=== PATIENT | female | born 2000 | race American Indian/Alaskan Native ===

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

== ENCOUNTER 2020-02-11 16:41 | Emergency (ER) | payer SELFPAY ==
[2020-02-11 16:57] VITALS: BP 126/82
== END 2020-02-11 20:33 | disposition left against medical advice (07) ==
LOC: ED 16:41
DX: S61.217A Laceration without foreign body of left little finger without damage to nail, initial encounter (principal); Z53.21 Procedure and treatment not carried out due to patient leaving prior to being seen by health care provider; W26.9XXA Contact with unspecified sharp object(s), initial encounter; Y93.89 Activity, other specified; Y92.89 Other specified places as the place of occurrence of the external cause; Y99.8 Other external cause status

== ENCOUNTER 2021-03-10 08:45 | Emergency (ER) | payer MEDICAID ==
[2021-03-10] MEDS ORDERED: PROMETHAZINE/CODEINE 6.25-10 MG ORAL LIQD 5 ML PO ONE (09:23)
--- NOTE | 2021-03-10 09:52 | Emergency Department Report ---
Minor Respiratory - HPI Chief Complaint: Upper Respiratory Infection Stated Complaint: VOMITTING,LOSS OF VOICE,COUGHING Time Seen by Provider: 03/10/21 09:23 Duration: 4 Days Severity: moderate Minor Respiratory: Yes Rhinorrhea, Yes Sore Throat, Yes Able to Tolerate Fluids, Yes Cough, No Ear Pain, No Sick Contacts, No Hemoptysis, No Chest Pain, No Shortness of Breath, No Fever Other History: The patient was evaluated in the emergency department for symptoms described in the history of present illness. He/she was evaluated in the context of the global COVID-19 pandemic, which necessitated consideration that the patient might be at risk for infection with the virus that causes COVID-19. Institutional protocols and algorithms that pertain to the evaluation of patients at risk for COVID-19 are in a state of rapid change based on information released by regulatory bodies including the CDC and federal and state organizations. These policies and algorithms were followed during the patient's care in the emergency department. Please note that these policies, procedures and recommendations changed on a rapid basis. 20-year-old - Stateless female presents to the emergency room complaining of a cough and sore throat. Last 4 to 5 days. She states that when she coughs it causes her throat to hurt. She denies any fever denies being vaccinated vomited x1 from posttussis emesis. Denies any nausea no diarrhea. She does admit to postnasal drainage. Denies any past medical history currently takes no meds on a daily basis and has no known drug allergies. ED Review of Systems ROS: Stated complaint: VOMITTING,LOSS OF VOICE,COUGHING Other details as noted in HPI Comment: All other systems reviewed and negative ED Past Medical Hx - Past Medical History Previous Medical History?: No Hx Hypertension: No Hx Congestive Heart Failure: No Hx Diabetes: No Hx Deep Vein Thrombosis: No Hx Renal Disease: No Hx Sickle Cell Disease: No Hx Seizures: No Hx Asthma: No Hx COPD: No Hx HIV: No - Surgical History Past Surgical History?: No - Social History Smoking Status: Never Smoker Substance Use Type: None - Medications Home Medications: Home Medications Medication Instructions Recorded Confirmed Last Taken Type Ampicillin 500 mg PO Q6H #28 capsule 05/10/16 07/12/16 Unknown Rx HYDROcodone/APAP 5-325 [[place] 1 each PO Q4HR PRN #20 tablet 05/10/16 07/12/16 Unknown Rx 5/325] metroNIDAZOLE [Flagyl] 500 mg PO Q12HR #14 tab 05/10/16 07/12/16 Unknown Rx Vit-Fe Fumar-FA [ 1 tab PO DAILY 07/12/16 07/12/16 Unknown History Vitamin] Ibuprofen [Motrin 400 MG tab] 400 mg PO Q8H PRN #21 tablet 12/25/18 Unknown Rx Amoxicillin [Trimox CAP] 500 mg PO Q8H 10 Days #30 capsule 12/27/18 Unknown Rx Benzocaine/Mentho [Cepacol X 1 each MM Q2H PRN #3 packet 12/27/18 Unknown Rx Strength] Ibuprofen [Motrin 800 MG tab] 800 mg PO Q8HR PRN #30 tablet 12/27/18 Unknown Rx dexAMETHasone [Decadron] 4 mg PO Q12H 2 Days #4 tablet 12/27/18 Unknown Rx Promethazine Dm (Nf) [Phenergan DM 5 ml PO Q6H PRN #118 ml 03/10/21 Unknown Rx 6.25-15 mg/5 ml] Minor Respiratory Exam - Exam General: Vital signs noted. No distress. Alert and acting appropriately. HEENT: Yes Pharyngeal Erythema, No Pharyngeal Exudates, No Moist Mucous Membranes, No Rhinorrhea, No Conjuctival Injection, No Frontal Tenderness, No Maxillary Tenderness Ear: Neither EAC Pain, Neither EAC Discharge Neck: Yes Supple, No Adenopathy Lungs: Yes Good Air Exchange, Yes Cough, No Wheezes, No Ronchi, No Stridor, No Labored Respirations, No Retractions, No Use of Accessory Muscles, No Other Abnormal Lung Sounds Heart: Yes Regular, No Murmur Abdomen: Yes Normal Bowel Sounds, No Tenderness, No Peritoneal Signs Skin: No Rash, No Edema Neurologic: Alert and oriented, no deficits. Musculoskeletal: Unremarkable. ED Medical Decision Making - Medical Decision Making 20-year-old -Stateless female presents to the emergency room complaining of a cough and sore throat. Last 4 to 5 days. She states that when she coughs it causes her throat to hurt. She denies any fever denies being vaccinated vomited x1 from posttussis emesis. Denies any nausea no diarrhea. She does admit to postnasal drainage. Denies any past medical history currently takes no meds on a daily basis and has no known drug allergies. Strep test negative. Patient is given promethazine with codeine for her cough. She will be discharged with promethazine DM. Critical care attestation.: If time is entered above; I have spent that time in minutes in the direct care of this critically ill patient, excluding procedure time. ED Disposition Clinical Impression: Cough Disposition: 01 HOME / SELF CARE / HOMELESS Is pt being admited?: No Does the pt Need Aspirin: No Condition: Stable Instructions: Cool Mist Vaporizer, Cough, Adult, [id number] Additional Instructions: Strep test negative. Take cough medication as prescribed. You can also take Zyrtec's or Claritin to help with the postnasal drip. Follow-up with your primary care provider. Tylenol or ibuprofen for throat pain. Prescriptions: Promethazine Dm (Nf) [Phenergan DM 6.25-15 mg/5 ml] 5 ml PO Q6H PRN #118 ml PRN Reason: Cough Referrals: PRIMARY CARE, [Primary Care Provider] - 3-5 Days Your, primary care provider [Other] - 3-5 Days Forms: Work/School Release Form(ED) Time of Disposition: 09:52
[2021-03-10 10:06] VITALS: BP 113/65
== END 2021-03-10 10:06 | disposition home or self-care (01) ==
LOC: ED 08:45
DX: R05.9 Cough, unspecified (principal); J02.9 Acute pharyngitis, unspecified
CPT/HCPCS: 87116; 87430; 99283